=== PATIENT | male | born 1995 | race Caucasian/White ===

== ENCOUNTER 2018-05-28 19:08 | Emergency (ER) | payer SELFPAY ==
[~2018-05-28] VITALS: Ht 180.3 cm; Wt 79.4 kg
[~2018-05-28 19:08] MED LIST: ALBU90OI61 INH; AMOX500; CEPH500 PO; CRUTCH2 USE; CRUTCH4 USE; CYCL10 PO; Cleocin HCl300 MG PO; DIAZ5 PO; GUAI600T33 PO; HYDACE5 PO; HYDR1TAB94; METO10 PO; Mobic15 MG PO; NAPR500 PO; Naprosyn500 MG PO; Norco 5-325 Ta1 EACH PO; PENVK500 PO; RXCLIN PO; RXONDA4ODT MM; RXOXYACE PO; SULTRIDS PO; Veetids 500500 MG PO
[2018-05-29] MEDS ORDERED: IBUP400 PO (00:38)
[2018-05-29] MEDS ORDERED: Zofran8 MG PO (00:38)
== END 2018-05-28 20:05 | disposition left against medical advice (07) ==
LOC: ER 19:08
DX: Z53.21 Procedure and treatment not carried out due to patient leaving prior to being seen by health care provider (principal)

== ENCOUNTER 2018-08-14 17:21 | Emergency (ER) | payer OTHER ==
[~2018-08-14] VITALS: Ht 180.3 cm; Wt 72.6 kg
[~2018-08-14 17:21] MED LIST changes: +IBUP400 PO; +Zofran8 MG PO
[2018-08-14 18:48] LABS: Source, Urine Clean Catch
[2018-08-14 19:01] LABS: Bilirubin, Urine Neg (Neg); Blood, Urine Neg (Neg); Glucose Qualitative, Urine Neg (Neg); Ketones, Urine 1+ (Neg); Leukocyte Esterase, Urine Neg (Neg); Nitrite, Urine Neg (Neg); Protein, Urine 1+ (Neg); Urobilinogen, Urine 2+ (Normal)
[2018-08-14 19:04] LABS: Appearance, Urine Clear (Clear); Color, Urine Yellow (P-Yellow)
[2018-08-14] MEDS ORDERED: Flonase 0.05% N16 GM (19:35)
[2018-08-14] MEDS ORDERED: Augmentin 875-1 EACH PO (19:35)
[2018-08-14] MEDS ORDERED: ALBU90OI INH (19:35)
== END 2018-08-14 19:40 | disposition home or self-care (01) ==
LOC: ER 17:21
PROVIDERS: Physician Assistant
DX: J32.9 Chronic sinusitis, unspecified (principal); R11.2 Nausea with vomiting, unspecified; R05 Cough
CPT/HCPCS: 70220; 71046; 99283-25